=== PATIENT | male | born 1940 | race Caucasian/White ===

== ENCOUNTER 2023-08-19 10:58 | Inpatient (IN) | payer MEDICARE, SELFPAY ==
[2023-08-08 13:33] VITALS: BMI 25.4
[2023-08-19] VITALS (10 sets, daily range): BP systolic 110–140; BP diastolic 67–85; PULSE 64–84; RESP 16–19; TEMP 35.9–37.2; O2SAT 93–97; BMI 24.3
--- NOTE | 2023-08-19 06:00 | DI.RAD.S_ITS ---
PROCEDURE: XR KNEE RT 1TO2V INDICATIONS: TKA TECHNIQUE: 2 view(s) of the knee acquired. COMPARISON: [facility] Renato Vigil, CR, XR KNEE 4+ VIEWS RIGHT, 05/02/2023, 12:01. FINDINGS: Bones: Patient is status post knee joint arthroplasty. Hardware components are in expected positions. Visualized bony structures are intact. Soft tissues: Overlying postoperative changes are noted. IMPRESSION: Expected post-operative appearance of the right knee arthroplasty. Dictated by: Brendan Downs M.D. on 08/19/2023 at 20:22 Approved by: Brendan Downs M.D. on 08/19/2023 at 20:22
[2023-08-19] MEDS: LACTATED RINGERS 1,000 ML 42 ML IV ×3 (12:06→17:58)
[2023-08-19] MEDS: MELOXICAM 7.5 MG TABLET PO (12:07)
[2023-08-19] MEDS: ACETAMINOPHEN 325 MG TABLET 975 MG PO (12:07)
--- NOTE | 2023-08-19 12:30 | PM.PREOP ---
Pre-operative Note Interval Note History & Physical reviewed/Exam performed by Physician: Yes Changes to H&P: No
--- NOTE | 2023-08-19 12:30 | SUR.OPER ---
Supine on padded OR bed. Pillow under head, arms secured on padded armboards <90 degree abduction. Safety belt across torso. Non-operative leg secured with tape over blanket over lower leg. Operative leg secured in DeMayo/Arden/Nathe positioner. Foam padded brace at thigh of operative leg.
[2023-08-19] MEDS: CEFAZOLIN 2 GM/100 ML PREMIX 100 ML IV ×3 (13:05→20:40)
[2023-08-19] MEDS: ROPIVACAINE/EPI/CLONIDINE/KET 50 ML SYRINGE INJ (14:05)
[2023-08-19] MEDS: TRANEXAMIC ACID 1,000 MG VIAL 1000 MG INJ ×2 (14:06→16:58)
--- NOTE | 2023-08-19 17:55 | PC.NURSE ---
Day Shift Throughout the day, oral care and food was offered but pt declined on each attempt.
--- NOTE | 2023-08-19 18:20 | P.OP_ITS ---
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 Post-op diagnosis: same Procedure & Clinicians Procedure: Revision of femoral and tibial components of right total knee arthroplasty (80962) Same procedure as scheduled: Yes Surgeon: Cy Cooper Mission Systems Engineer: Yashira Nguyen Anesthesia Type: General, Spinal and Local Operative Notes Estimated Blood Loss (mL): 300 Tourniquet time (min): 120 Procedure in detail: Implants: [employer] [facility] Revision Total Knee Arthroplasty: * Size 5 Constrained Oxinium Femoral Component with 5 mm Distal-Lateral and 5mm Distal-Medial augments and a [id number] stem * Size 5 Revision Tibial Component with [id number] stem * Size 18 Short Femoral Cone * Size 24 Short Tibial Cone * Size 13 Posterior Stabilized Polyethylene Insert * Retained Patella from prior surgery * Arthrex 2 mm TigerTape Cerclage Suture Procedure Summary: This 83-year-old male patient was referred to me by an outside surgeon for evaluation for possible total knee revision. His radiographs were indicative of tibial sided loosening and comparison with radiographs dating back to 2018 demonstrated progressive varus angulation of the tibia with subsidence. The initial surgery had been performed in 2013. I did believe that the femoral component was also loose however I preferred to replace the femoral component as well as the tibial component in order to avoid using a prior generation of implant, as the total knee was a PFC Sigma. Utilized robotic assistance during the procedure. After the knee was exposed, I placed robotic pins and obtained data on component sizing and gap laxity to guide the eventual revision. A robotic plan was constructed for eventual implantation and the implants were then removed. I did note that the femur was well fixed, as depicted in the photograph below. I had very minimal bone loss throughout the femur and actually did not have any bone loss in the posterior femur. The tibia was grossly loose and was removed without any cement remaining attached to the undersurface of the base plate. I initially trialed with primary implants and found appropriate flexion and extension balance and medial and lateral laxity. I then prepped for revision components and implanted the sizes listed above. During implantation of the femoral cone I noted a nondisplaced crack extending proximally in the medial metaphysis. I used an Arthrex TigerTape cerclage suture to hold that nondisplaced crack in place and bypassed it with the femoral stem. Final polyethylene trial revealed full extension with a 13 mm implant. There was approximately 110? of flexion. This implant was utilized Procedure in Detail: This patient was seen preoperatively and evaluated for knee pain which was refractory to numerous nonoperative treatment modalities. Their pain correlated with radiographic changes demonstrating loosening of the tibial component. The risks and benefits of continued nonoperative management versus operative management were discussed at length and all of the patient?s questions were answered. Additional educational materials providing further details beyond our discussion in clinic were provided via a publicly available patient education video which can be accessed at [email or web address] , although this video was primarily intended for patients undergoing primary total knees rather than revision total knees. Inflammatory markers were obtained which were normal. With this understanding of the risks inherent to the procedure, the patient elected to move forward with operative management. Following preoperative optimization, the patient was scheduled for surgery. The patient was met in the preoperative holding area the day of the procedure and all questions were answered. The patient?s nares were swabbed with betadine in order to decolonize them from MRSA. Informed consent was signed and the operative limb was marked with indelible ink.? The patient was brought back to the operating room where anesthesia was induced. The patient was transferred to the operating table and all bony prominences were padded. The operative site was prepped and draped in the usual sterile fashion. A second prep stick was utilized following drape placement. The incision was marked corresponding to the medial aspect of the tibial tubercle and the patella. Ioban was wrapped circumferentially around the knee. Prior to incision, tranexamic acid and cefazolin were administered. Templating images were displayed. A timeout procedure was performed verifying the patient?s identity, medical comorbidities, allergies, relevant medications, anesthesia type and the surgical plan. All present were in agreement. The assistance of a physician assistant merchandiser was required for positioning, room setup, soft tissue retraction and wound closure. Without this assistance, the procedure would have been significantly more challenging and time consuming.?? The tourniquet was inflated prior to incision. I made an anterior incision over the knee, dissected through the subcutaneous tissues and identified the lateral border of the VMO. Medial and lateral soft tissue flaps were developed. A medial parapatellar arthrotomy was performed ensuring that adequate capsular tissue would remain for closure at the conclusion of the procedure. The hip was brought into extension and the medial soft tissues were released off the joint line of the tibia. A portion of the retropatellar fat pad was excised while protecting the patellar tendon. The patella was everted and tissue around the patella was excised. Pins for the robotic assistance were placed in the femur and the tibia proximal and distal to the main incision. The robotic program was followed, outlining the old total knee arthroplasty in the same manner as would be utilized for an arthritic knee. This involved calculating the hip center as well as mapping out the ankle and mapping out the polyethylene insert, femoral component, and surrounding bone on both the femoral and tibial sides. Motion was captured using the tibial rays and a plan for eventual component sizing and placement was constructed. I then moved onto component extraction. Medial and lateral gutters were both excised and the margins of the femoral component were exposed. A TPS saw was used to open the implant cement interface and osteotomes were used to free up the implant from the underlying bone. The component was eventually loosened and I began to extract it. It was necessary to remove the polyethylene insert to fully remove the femur. I noted minimal bone loss throughout with no bone loss on the posterior femur either medially or laterally. I then moved to the tibia. I externally rotated the tibia and placed retractors laterally and posteriorly. I performed a medial peel around the posterior medial corner. I used a TTS saw to open up the interface between the cement and the implant and noted gapping nearly immediately. I therefore attached a back slapping device to the undersurface of the tibial plate and impacted it out of the wound. The entire tibial base plate came free without any remaining cement attached to it. I removed residual cement from the tibia including in the tibial canal and on the joint line. I then moved onto burring for revision components. I initially began by using the bur to resect back to the intended implant position based on the robotic platform designed for the eventual revision knee. This also allowed me to map out the defects which had occurred with bone removal. The anterior medial cortex had a defect which I planned to fill with cement underneath the flange. There was missing bone in the distal femur. There was minimal distal bone in the posterior femur and I actually resected away some remaining bone on both the posterior medial and posterolateral sides. On the tibial side minimal bone was removed with the initial burning. I then mapped the defects on both the femoral and tibial sides. I found that there was an approximately 2 mm defect throughout the tibia so I burred down an additional 2 mm on the tibial side. I found that there was approximately a 4 mm defect on the distal medial and distal lateral sides on the femur so I burred down to 5 mm on both of those with plans for 5 mm augments. I then began prepping for cones and stems. I reamed on both the femoral and tibial sides and subsequently broached over an intramedullary guide to prepare for cones. I placed cone trials and then placed femoral and tibial trials with stems through the cone trials. I found that 12 mm stems fit appropriately through the cones and left enough room for cement to extrude through the cone without creating a seal. I plan to use a 12 mm by 160 mm stem on the femoral side and a 12 mm x 120 mm stem on the tibial side. I placed all of these implants and trialed and found appropriate stability with a 13 mm polyethylene and plan to use this at the conclusion of the procedure. I removed all of the components and soaked the entire wound in a dilute mixture of peroxide for 3 minutes. I then irrigated this out. I soaked the wound in a dilute mixture of Betadine for 3 minutes. I irrigated this out. I then inserted the tibial cone and the femoral cone. While inserting the femoral cone I noted a nondisplaced crack extending up the medial metaphysis. Utilized an Arthrex TigerTape cerclage tensioner to tension around that nondisplaced crack and hold it in place during the cementation process. I placed cement restrictor down the femur and tibia. I irrigated the tibia, dried it, inserted cement down the canal, and placed the tibial component corresponding to the trials I had utilized. I allowed this to dry before moving onto the femoral side. I used a separate batch of cement down the femur after irrigating and drying that. I inserted cement down to the cement restrictor. I inserted the component and pressurized it with a 13 mm polyethylene trial. I waited for the cement to dry. I then removed the pins for the femoral and tibial rays. I trialed with multiple polyethylene sizes and determined that a 13 mm was appropriate. I inserted this final polyethylene. I infiltrated the soft tissues with a mixture of ropivacaine epinephrine clonidine and Toradol throughout the knee including in the VMO, vastus lateralis, quadriceps tendon, patellar tendon, femoral periosteum, and into the distal extent of the adductor canal for an adductor canal block. The arthrotomy was closed with absorbable interrupted suture ensuring that this extended to the top of the arthrotomy. This was backed up with running barbed suture throughout the arthrotomy. The skin was closed with 2-0 and 3-0 sutures. Surgical glue was applied and a ade incisional dressing was placed.?The sponge, instrument and needle counts were reported as being correct at the end of the case.??No obvious complications occurred. The patient was transferred from the operating table back to a stretcher. The patient emerged from anesthesia without difficulty and was taken to the PACU in a stable condition.? Plan for aftercare: * Weightbearing as tolerated * Mobilization with physical therapy tomorrow * Aspirin 81 twice per day for DVT prophylaxis * Multimodal pain regimen with no IV opioids ordered * Anticipate discharge home tomorrow * We will follow cultures to ensure there are no surprise positive results. Patient will receive a prescription for cefadroxil 500 mg twice per day for 7 days for prophylaxis against periprosthetic joint infection * Ade incisional wound VAC dressing to remain in place until visit. After the battery dies and 7 days the cord can be removed and it can be utilized as a normal dressing until follow-up * Follow up at [facility] in 2 weeks * Detailed postoperative instructions available at [email or web address]
[2023-08-19] MEDS: LACTATED RINGERS 1,000 ML 100 ML IV (19:06)
[2023-08-19] MEDS: ACETAMINOPHEN 325 MG TABLET 650 MG PO (19:32)
--- NOTE | 2023-08-19 20:29 | PM.PN.1 ---
Subjective Subjective Interval history: Patient seen postoperatively on the floor. Resting comfortably. No acute distress. Reports minimal discomfort in the knee. Ice machine in place and functioning appropriately. Flexing and extending hallux and ankle. Dressing clean dry and intact. We will plan to discharge him likely tomorrow with a week of cefadroxil for PJI prophylaxis. Exam Vital Signs (past 8 hours): - 08/19/23 18:15 08/19/23 18:20 08/19/23 18:25 Temperature 99 F Pulse Rate 84 79 78 Respiratory Rate 19 18 18 Blood Pressure 110/67 123/72 121/70 Pulse Oximetry 93 93 93 Oxygen Delivery Method Room Air Room Air Room Air Oxygen Flow Rate 08/19/23 18:30 08/19/23 18:59 08/19/23 19:25 Temperature 97.1 F L 96.7 F L Pulse Rate 78 80 78 Respiratory Rate 16 16 17 Blood Pressure 123/72 113/77 115/85 Pulse Oximetry 93 95 96 Oxygen Delivery Method Room Air Oxygen Flow Rate 0 08/19/23 19:55 Temperature 96.8 F L Pulse Rate 77 Respiratory Rate 16 Blood Pressure 130/72 Pulse Oximetry 97 Oxygen Delivery Method Oxygen Flow Rate Oxygen Delivery Method Room Air Oxygen Flow Rate 0 Objective Labs Labs: Laboratory Results - last 24 hr 08/19/23 12:15 Blood Type O Positive Antibody Screen Negative [facility] Medical History (Updated 08/08/23 @ 14:28 by Maribell Brennan RN) Aseptic loosening of prosthetic knee Hypothyroidism GERD (gastroesophageal reflux disease) Implantable loop recorder present (02/15/21) CHF (congestive heart failure) Bigeminal rhythm Hearing impaired Surgical History (Updated 08/08/23 @ 14:28 by Maribell Brennan RN) History of arthroscopy of left shoulder History of total right knee replacement (~2016) History of back surgery (2022) Hx of fusion of cervical spine History of prostate surgery Hx of appendectomy Hx of cholecystectomy (2022) History of cardiac radiofrequency ablation (2020) 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
[2023-08-19] MEDS: DOCUSATE 100 MG CAPSULE PO (20:39)
[2023-08-19] MEDS: ASPIRIN EC 81 MG TABLET PO (20:39)
[2023-08-19] MEDS: TAMSULOSIN 0.4 MG CAPSULE PO (20:39)
[2023-08-19] MEDS: NAPROXEN 250 MG TABLET 500 MG PO (20:39)
--- NOTE | 2023-08-19 22:17 | PC.NURSE ---
Pt. admitted from PACU by day RN. Dr. Cooper came to the floor & talked to the patient. Oriented to his room showed him how to used his call light, TV & bed controls. Encouraged to call for assistance if he needed to get up OOB to the bathroom or BSC. Will cont. POC & monitor.
[2023-08-19] MEDS: OXYCODONE IR 5 MG TABLET PO (23:05)
[2023-08-20] MEDS: ACETAMINOPHEN 325 MG TABLET 650 MG PO ×2 (00:59→06:22)
[2023-08-20 04:23] VITALS: BP 103/69; PULSE 69; RESP 16; TEMP 35.9; O2SAT 96
[2023-08-20] MEDS: CEFAZOLIN 2 GM/100 ML PREMIX 100 ML IV (05:19)
[2023-08-20] MEDS: OXYCODONE IR 5 MG TABLET PO (05:38)
[2023-08-20] MEDS: PANTOPRAZOLE DR 20 MG TABLET PO (06:21)
[2023-08-20] MEDS: LEVOTHYROXINE 25 MCG TABLET PO (06:21)
[2023-08-20 06:44] LABS: Hematocrit 36.2 % (41-53); Hemoglobin 12.5 g/dL (13.5-17.5)
[2023-08-20 08:00] VITALS: BP 112/66; PULSE 69; RESP 16; TEMP 36.2; O2SAT 94
[2023-08-20] MEDS: NAPROXEN 250 MG TABLET 500 MG PO (08:46)
[2023-08-20] MEDS: allopurinoL 100 MG TABLET PO (08:46)
[2023-08-20] MEDS: OXYBUTYNIN 5 MG TABLET PO (08:46)
[2023-08-20] MEDS: ASPIRIN EC 81 MG TABLET PO (08:46)
[2023-08-20] MEDS: ATORVASTATIN 20 MG TABLET PO (08:46)
[2023-08-20] MEDS: SODIUM CHLORIDE 0.9% FLUSH 10 ML IV (08:47)
--- NOTE | 2023-08-20 08:55 | PT.IIE ---
Current Diagnoses Presence of right artificial knee joint (08/19/23) Surgery Performed Operation Date: 08/19/23 12:45 Actual Procedures p Total Knee Arthroplasty Revision - ROBOT - Cy Cooper MD Surgical History (Last Updated 08/08/23 @ 14:28 by Maribell Brennan, RN) Aortic valve replaced (04/24/19) History of arthroscopy of left shoulder History of back surgery (2022) History of bilateral cataract extraction History of cardiac radiofrequency ablation (2020) History of prostate surgery History of total right knee replacement (~2016) Hx of appendectomy Hx of cholecystectomy (2022) Hx of fusion of cervical spine 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) Medical History (Last Updated 08/08/23 @ 14:28 by Maribell Brennan RN) 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 CHF (congestive heart failure) GERD (gastroesophageal reflux disease) Hearing impaired Hypothyroidism Implantable loop recorder present (02/15/21) Physical Therapy Inpatient Evaluation/Re-Eval M1 PT/OT-IP Prior Functional Status Start: 08/20/23 13:23 Freq: NEEDED Status: Active Protocol: Document 08/20/23 08:55 AB (Rec: 08/20/23 13:45 AB [id number]) Medical Review Prior Functional Status Medical History Reviewed Yes Communication able to make needs known Mobility and Gait pt stated that he was independent with all mobilities and ambulation without AD Social History Household Members significant other,other Living Arrangements House Number of Floors (Floors) One Floor Number of Stairs To Enter/Railing? 1 step to enter the house Home Environment High Toilet,Walk in Shower Home Equipment Front Wheel Walker,Four Wheel Walker,Hand Held Shower,Grab Bars Near Toilet,Grab Bars In Shower Additional Social History Comment pt stated that his daughter and ARTEMIO lives close by and can assist him if needed M2 PT-IP Current Condition Start: 08/20/23 13:23 Freq: NEEDED Status: Active Protocol: Document 08/20/23 08:55 AB (Rec: 08/20/23 13:45 AB [id number]) Physical Therapy Current Condition Current Condition Evaluation Date 08/20/23 Treatment Diagnosis s/p R TKA revision; difficulty in walking Onset Date 08/19/23 M3 PT-IP Subjective Start: 08/20/23 13:23 Freq: NEEDED Status: Active Protocol: Document 08/20/23 08:55 AB (Rec: 08/20/23 13:45 AB [id number]) Subjective Physical Therapy Visit Type Type Initial Evaluation Visit Start Time 08:55 Visit Stop Time 10:13 Number of PRODUCTION STATISTICAL CLERK Visits 78 Physical Therapy Visit Comments Patient Comments agreeable to do PT Therapy Pain Assessment Pain When Pain Assessed At Rest Pain Present Pain Present Pain Reported Location Right Knee Intensity 1 Scale Used Numeric (0 - 10) Pain Behaviors Guarding Pain Management Techniques Apply Cold,Distraction, Modification of Treatment,Re- positioning,Timing of Activity with Medications M4 PT-IP Mobility and Gait Start: 08/20/23 13:23 Freq: NEEDED Status: Active Protocol: Document 08/20/23 08:55 AB (Rec: 08/20/23 13:45 AB [id number]) PT-Bed Mobility Assessment Supine to Sit Supine to Sit Standby Assistance Sit to Supine Sit to Supine Standby Assistance PT-Transfer Assessment Sit to and From Stand Sit to and from Stand Standby Assistance,Contact Guard Assistance,1 Person Assistance,Use of Upper Extremities Equipment Transfer Assistive Device Gait Belt,Front Wheeled Walker Orthotic/Prosthetic Devices or Brace: No Transfers Transfer Destination Chair Transfer Technique ambulated Transfer Ability Level of Assist Standby Assistance,Contact Guard Assistance,1 Person Assistance,Use of Upper Extremities Comments Mobility Comments pt sitting on EOB and agreeable to do PT. obtained PLOF and home set up from pt. post-op folder provided to pt and reviewed contents. pt completed sit<>supine SBA. completed sit to stand from EOB CGA and ambulated to the chair ~ 15 ft using fWW CGA. pt agreed to do stairs. completed sit to stand SBA to CGA from chair and ambulated to the platform step using fWW ~ 25 ft SBA to CGA. completed up/down platform step using fWW CGA and max cues on first attempt. pt completed again and without cues needed. pt ambulated in the hallway ~ 50 ft using fWW SBA to occasional CGA. ambulated back to his room and sat on the chair. positioned pt on the chair. call light and table placed within reach. pt without further concerns. Gait Assessment Gait Gait Assistance Required: Standby Assistance,Contact Guard Assist Distance (Feet) 50 Able to Maintain Weight Bearing Status Yes During Gait Assistive Devices Assistive Device Gait Belt,Front Wheeled Walker Orthotic/Prosthetic Devices or Brace: No Gait Deviations General Gait Pattern Antalgic,Decreased Stride Length,Decreased Feet Clearance Factors Limiting Gait Function Factors Limiting Gait Function Decreased Activity Tolerance, Decreased Strength,Limited Range of Motion,Pain,Poor Balance,Poor Safety Awareness Stair Climbing Assessment Evaluation Level of Assist On Stairs Contact Guard Assistance Devices Stair Climbing Assistive Devices Front Wheel Walker Technique/Endurance Stair Climbing Direction Ascend and Descend Stair Climbing Technique Step to Step Number of Steps Climbed 1 Query Text: Stair Climbing Set # Repetitions (reps) 2 PT-Balance Assessment Sitting Balance and Reactions Static Sitting Balance Ability Normal Dynamic Sitting Balance Ability Good Standing Balance and Reactions Static Standing Balance Ability Fair Dynamic Standing Balance Ability Fair Device Used FWW M5 PT-IP Objective Assessments Start: 08/20/23 13:23 Freq: NEEDED Status: Active Protocol: Document 08/20/23 08:55 AB (Rec: 08/20/23 13:45 AB [id number]) Orientation Orientation/Cognition Level of Alertness Alert Orientation Name,Place,Situation Language Function Ability Hard of Hearing Safety Awareness Understands Safety Issues Memory Description No Deficits Noted Gross Range of Motion Lower Extremity ROM Impairments R knee flexion: ~ 70 deg Strength Lower Extremity Strength Assessment Right Impaired Hip 4-/5 Knee 3+/5 Sensation Assessment Sensation Gross Sensation WNL Muscle Tone Muscle Tone WNL Yes M6 PT-IP Treatment Start: 08/20/23 13:23 Freq: NEEDED Status: Active Protocol: Document 08/20/23 08:55 AB (Rec: 08/20/23 13:45 AB [id number]) Physical Therapy Treatment Education Education Provided Precautions,Weight Bearing Status,Post-Op Packet,Safety M7 PT-IP Assessment and Plan Start: 08/20/23 13:23 Freq: NEEDED Status: Active Protocol: Document 08/20/23 08:55 AB (Rec: 08/20/23 13:45 AB [id number]) PT Summary Assessment and Plan Potential Rehabilitation Potential Fair Status of Condition at Evaluation Stable Summary Impairments Pain,ROM,Strength,Balance, Coordination,Cognition,Bed Mobility,Transfers,Gait, Activity Tolerance Assessment Summary pt is an 83 y/o M s/p R TKA revision POD 1. pt is WBAT on RLE. pt requiring SBA to CGA with mobility and plans to go home and will have his family to assist him. pt stated that he has outpt PT set up. pt may go home when medically stable. Goals Bed Mobility Goal Independent Transfer Goal Independent,Front Wheeled Walker Gait Goal Independent,Front Wheel Walker Gait Distance 300 Other Goals up/down 1 step using FWW mod I Days to Meet Goals 5 Frequency of Treatment Frequency Of Treatment Twice a Day Treatment Plan Physical Therapy Treatment Plan Bed Mobility Training,Transfer Training,Gait Training, Therapeutic Exercise,Balance Retraining,Post Op Education, Discharge Planning,Hot or Cold Pack,Neuromuscular Re-ed, Coordination Retraining,Manual Therapy Weight Bearing Status Weight Bearing Status Weight Bear as Tolerated Allowed Weight Bearing Amount (enter % RLE WBAT or #) (%) Recommendations To Nursing Amount of Assist Needed 1 Person Assist Discharge Recommendations PT Discharge Recommendations Home with Assistance, Outpatient PT Transportation Needs at Discharge Private Vehicle
--- NOTE | 2023-08-20 10:37 | CM.DANOTE ---
DCP: Case received, EMR reviewed and met with patient. Introduced self and role. Was able to complete DCP assessment based upon information currently available. Patient is an 83 year old male who admitted yesterday morning to the care of the orthopedic team. PCP: Dr. Ya. Payer: confirmed: [facility]. Patient came to the hospital via private vehicle for a surgical procedure. Patient had revision of femoral and tibial components of right total knee arthroplasty. Patient had aseptic loosening of right total knee. Met with patient in his room. He is alert, pleasant, and was sitting on the edge of the bed. Confirmed that he [place] [facility] [place] Resides with life partner, Kiera Mae, who will be assisting him when he goes home. 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 Patient will do outpatient P.T. P: Patient has discharge orders for home today, will work with P.T. prior. Julia Alvares RN/Bulk Intake Worker Discharge Planning/Care Management CM Discharge Assessment Start: 08/20/23 10:32 Freq: Status: Active Protocol: Document 08/20/23 10:33 (Rec: 08/20/23 10:34 [id number]) Discharge Planning Assessment Assigned Gas Mask Assembler Julia Alvares RN/Bulk Intake Worker Advance Directives? Yes Advance Directives on File No History Provided By Patient,Medical Record Prior Living Arrangements House Household Members friend(s),other Comment Life partner Type of transporation used prior to Drives own vehicle admit Independent with ADL's Yes Is patient alert and oriented? Yes Caregiver for Another No Patient/Family Preference OP PT Therapy Barriers to Discharge No Discharge Plan Home Transportation Arrangement Partner Referrals Initiated None needed Whiteboard Updated in Patient Room with Yes name and ext. # of Gas Mask Assembler Review Status In Process Next Review Type Continued Stay Review Pre-Anesthesia Assessment Start: 08/08/23 13:33 Freq: Status: Complete Protocol: Document 08/08/23 13:33 CAB (Rec: 08/08/23 14:44 CAB [id number]) Pre-Anesthesia Assessment Preferred Name Riaz Patient Information Reviewed Via Phone Assessment Assessment Completed With Patient Diagnostic Results BMP/CMP,CBC Comment Outside labs scanned Primary Care Provider Lino Ya Comment PCP pre-visit 06/14/23 & clearance 06/13/23 scanned and in surgery folder Seen Specialist in Last 12 Months Yes Specialist Seen Casino Slot Supervisor,Orthopedist Primary Language Vietnamese Digital Art Director Required No Height 5 ft 8.5 in Weight 170 lb Body Mass Index (BMI) 25.4 Hearing Ability Hearing Impaired,Use of Hearing Aid Visual Assist Glasses Dentition Type Teeth, Natural Present Barriers to Learning Auditory Hx Anesthesia Reactions No Hx Family Anesthesia Reaction No Hx Malignant Hyperthermia No Hx Blood Transfusions No Anesthesia Review Requested No Bond Clerk No alcohol intake current alcohol intake frequency 0-2 drinks per day Smoking Status Never smoker Tobacco type smokeless tobacco how long ago did patient quit smoking Quit chewing tobacco 5-6 weeks ago Substance Use Type does not use Pain Present Pain Reported Musculoskeletal Symptoms Abnormal Gait,Back Pain, Difficulty Walking,Joint Pain History of Falling (Recent or History of Yes ) Patient is completely paralyzed or No completely immobile Mental Status Oriented to own ability Is patient on oxygen? No Does patient have FERNÁNDEZ/SOB No Hx Sleep Apnea No Currently Taking a Beta Obdulia No Can You Climb a Flight of Stairs Without Yes SOB Hx Chest Pain No Hx SOB No Hx Syncope or Dizziness No Anti-Coagulant Therapy Yes: ASA 81mg-pt will check w/ cardiology if to hold or continue Has a Casino Slot Supervisor Yes: Last visit 04/18/[address] Cook @ [facility] Cardiac Testing Nuc stress @ [facility] 04/11 Hx Pacemaker/ICD No Pacemaker Rep Required? No Cardiac Clearance Received Yes Comment Cardiac records scanned and in surgery folder Diet Type At Home Regular Dysphagia No Gastrointestinal Symptoms Retching Bladder Pattern Retention Urinary Catheter Present No Hx Urinary Self Catheterization No Diabetes No HgbA1C 4.9 Date 07/05/23 Hx Drug Resistant Organism No Presence of External or Internal Medical Yes Devices Received a COVID vaccine? Yes Received all doses? No Marital Status Lives With spouse,friend(s) Current Living Arrangements House Number of Floors (Floors) One Floor Support System Child/Children,Friend(s), Spouse Comment Children live next door as well Does the Patient Have Assistance After Yes: has physicial Surgery limitations, friend lives with them Patient Discharge Plan Description Return Home Comment Pt advised 2-3 day length of stay per surgeon Feels Safe in Current Environment Yes Been Physically Hurt or Threatened By a No Person in Current Environment Do you have thoughts of harming yourself None or others? Are you currently considering suicide? No Do you have a plan to hurt yourself or No Plan others? Do You Have Any Spiritual Beliefs That No May Affect Your HC Choices? Do You Have Any Cultural Practices That No May Affect Your HC Choices? Comment Caodaism Who Can We Speak to About Patient's Care Family, friends Identifying Code for Release of Patient Declines to issue Information Health Care Proxy/Next of Kin Kiera (friend) Steff () Health Care Proxy Phone Number Kiera: [phone] Steff: [phone] Advance Directives? Yes Advance Directives on File No Requested Patient Bring Advanced Yes Directives DOS Power of Automobile Lights Assembler Yes Power of Automobile Lights Assembler Name Steff () Power of Automobile Lights Assembler PAC Instructions Durable medical equipment, Medications to take/avoid, Nasal antibiotic,No ETOH/ petroleum product on skin DOS, NPO,Pre-surgical wash,Sensory aids,Sturdy shoes/comfortable clothes,Do not bring valuables and remove jewelry
--- NOTE | 2023-08-20 11:05 | P.DS_ITS ---
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 Post-op diagnosis: same Procedure & Clinicians Procedure: Revision of femoral and tibial components of right total knee arthroplasty (05898) Same procedure as scheduled: Yes Surgeon: Cy Cooepr [employer] Professor: Yashira Nguyen Anesthesia Type: General, Spinal and Local Operative Notes Estimated Blood Loss (mL): 300 Tourniquet time (min): 120 Procedure in detail: Implants: [employer] Revision Total Knee Arthroplasty: * Size 5 Constrained Oxinium Femoral Component with 5 mm Distal-Lateral and 5mm Distal-Medial augments and a [id number] stem * Size 5 Revision Tibial Component with [id number] stem * Size 18 Short Femoral Cone * Size 24 Short Tibial Cone * Size 13 Posterior Stabilized Polyethylene Insert * Retained Patella from prior surgery * Arthrex 2 mm TigerTape Cerclage Suture Discharge Providers Provider Date of admission: 08/19/23 10:58 Discharge Date: 08/20/23 Primary care physician: Lino Ya MD Consults: 08/19/23 06:00 Consult to Anesthesiology Routine Comment: Consulting Provider: Anesthesiologist Reason for consultation: Regional block for post operative pain control 08/19/23 18:58 Consult to Discharge Planning Routine Comment: Consult to Physical Therapy Evaluate & Treat Comment: Physician Instructions: postop TKA protocol Discharge provider: Tutu Pierce PA-C Summary Hospital Course Discharge Diagnosis: Revision of femoral and tibial components of right total knee arthroplasty Hospital Course: Multimodal pain control. Physical therapy. Status at Discharge Cognitive/behavioral status at discharge: oriented Functional status at discharge: uses cane/walker Overall status at discharge: patient is back to baseline Time Spent with Patient Time spent: Less than 30 minutes Exam Vital Signs (past 8 hours): - 08/20/23 04:23 08/20/23 08:00 08/20/23 08:00 Temperature 96.7 F L 97.1 F L Pulse Rate 69 69 Respiratory Rate 16 16 Blood Pressure 103/69 112/66 Pulse Oximetry 96 94 Oxygen Delivery Method Room Air Oxygen Flow Rate 0 0 Oxygen Delivery Method Room Air Oxygen Flow Rate 0 Narrative Exam Narrative: Patient is found with his sitting at bedside with his feet over the edge. Dressing appears to be well maintained. No pain to palpation over the surgical site. Range of motion is 0-60. Able to dorsiflex and plantar flex against resistance of the right ankle. Sensation is grossly intact to the right lower extremity. Const General: cooperative, healthy appearing and comfortable Objective Labs 08/20/23 06:33 Labs: Laboratory Results - last 24 hr 08/19/23 08/20/23 12:15 06:33 Hgb 12.5 L Hct 36.2 L Blood Type O Positive Antibody Screen Negative PFSH Medical History (Updated 08/08/23 @ 14:28 by Maribell Brennan RN) Aseptic loosening of prosthetic knee Hypothyroidism GERD (gastroesophageal reflux disease) Implantable loop recorder present (02/15/21) CHF (congestive heart failure) Bigeminal rhythm Hearing impaired Surgical History (Updated 08/08/23 @ 14:28 by Maribell Brennan RN) History of arthroscopy of left shoulder History of total right knee replacement (~2016) History of back surgery (2022) Hx of fusion of cervical spine History of prostate surgery Hx of appendectomy Hx of cholecystectomy (2022) History of cardiac radiofrequency ablation (2020) 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 May utilize oxycodone 5 mg every 4 hours as needed for postoperative pain. * Start with outpatient physical therapy in 5-10 days. * We will follow cultures to ensure there are no surprise positive results. Patient will receive a prescription for cefadroxil 500 mg twice per day for 7 days for prophylaxis against periprosthetic joint infection * Avinash incisional wound VAC dressing to remain in place until visit. After the battery dies and 7 days the cord can be removed and it can be utilized as a normal dressing until follow-up * Follow up at [facility] in 2 weeks Discharge Plan Discharge Plan Patient Disposition: Home Provider Discharge Comment: Detailed postoperative instructions available at [email or web address] Discharge orders & Medications Prescriptions: New cefadroxil 500 mg capsule 500 mg PO BID 7 Days Qty: 14 0RF ondansetron 4 mg Tablet,Disintegrating 4 mg PO Q6HR PRN (Reason: Nausea And Vomiting) Qty: 10 0RF oxycodone 5 mg Tablet 5 mg PO Q4H PRN (Reason: Pain, Severe (7-10)) Qty: 30 0RF Continued atorvastatin 20 mg Tablet 20 mg PO DAILY allopurinol 100 mg Tablet 100 mg PO DAILY levothyroxine 25 mcg Tablet 25 mcg PO DAILY acetaminophen 650 mg Tablet Extended Release 650 mg PO TID tamsulosin 0.4 mg Capsule 0.4 mg PO BEDTIME oxybutynin chloride 5 mg Tablet 5 mg PO DAILY naproxen 500 mg Tablet 500 mg PO BID lansoprazole 15 mg Capsule,Delayed Release(Dr/Ec) 15 mg PO DAILY Changed aspirin 81 mg Tablet,Delayed Release (Dr/Ec) 81 mg PO BID Qty: 90 0RF Follow up/Referrals: iLno Ya MD [Primary Care Provider] - Cy Cooper MD [Physician] - (Follow up as scheduled at [facility] in 2 weeks.) Diet/Activity/Treatments Diet: Diet as Tolerated Activity: Weight bearing as tolerated. Work on early mobilization with PT and at home. Cold/Heat Therapy: Ice to the knee for additional pain control Skin/Wound/Dressing Care Report to your healthcare provider any signs of infection, such as:: chills, fever, night sweats, unusual drainage and unusual redness Special Rehabilitation Services Reason for rehabilitation: Post-operative therapy Rehab type: Physical therapy Visit Report/Discharge Packet Instructions: DI for Knee Replacement, DI for Prescription Opioid Use Stand Alone Forms: Patient Portal/API, Stroke Signs & Symptoms Discharge Data Primary Care Provider: Lino Ya Quality VTE Deep Vein Thrombosis/Pulmonary Embolism Present on Admission: No
--- NOTE | 2023-08-20 12:11 | PC.NURSE ---
Pt discharged home at 1215, escorted off floor in wheelchair accompanied by spouse and hospital staff. IV removed, discharge teaching completed including wound care, follow up appointments and new medications. Patient and spouse brought up that their regular pharmacy is closed on the weekends, so this nurse called the PA and had the prescriptions sent to [facility] pharmacy instead, per patient request. Other questions and concerns addressed. Patient left the room with all belongings.
== END 2023-08-20 12:19 | disposition home or self-care (01) | DRG 468 ==
PROVIDERS: Admitting Provider Orthopaedic Surgery Adult Reconstructive Orthopaedic Surgery; PCP Family Medicine; Referring Provider Orthopaedic Surgery Adult Reconstructive Orthopaedic Surgery; Visit Provider Orthopaedic Surgery Adult Reconstructive Orthopaedic Surgery
PROC: 0SPC0JZ Removal of Synthetic Substitute from Right Knee Joint, Open Approach (ICD-10-PCS; 2023-08-19 12:45)
DX: T84.032A Mechanical loosening of internal right knee prosthetic joint, initial encounter (principal); K21.9 Gastro-esophageal reflux disease without esophagitis; E03.9 Hypothyroidism, unspecified
CPT/HCPCS: 36415; 73560; 85014; 85018; 86850; 86900; 86901; 87070; 87075; 87176; 87205; 97116; 97161; 97530; C1776; J0690; J1100; J2405; J2704; J3010

== ENCOUNTER → 2025-05-16 07:57 | Outpatient (CLI) | payer MEDICARE, SELFPAY ==
[2023-08-19 19:47] VITALS: BMI 24.3
== END ==
PROVIDERS: Family Provider Family Medicine; PCP Family Medicine; Referring Provider Orthopaedic Surgery; Visit Provider Orthopaedic Surgery
DX: R20.2 Paresthesia of skin (principal); R29.898 Other symptoms and signs involving the musculoskeletal system
CPT/HCPCS: 95886; 95910